=== PATIENT | male | born 2000 ===

== ENCOUNTER 2018-10-08 10:16 | Emergency (ER) | payer BC ==
[2018-10-08] MEDS ORDERED: NS 0.9% 1000 ML* 1,000 ML IV ONE (10:28)
[2018-10-08 10:40] LABS: ABS Basophils 0.1 10^3/ul (0-0.2); ABS Eosinophils 0 10^3/ul (0-0.6); ABS Lymphocytes 1.3 10^3/ul (1.0-4.8); ABS Monocytes 1.1 10^3/ul (0-0.8); ABS Neutrophils 7.1 10^3/ul (1.5-7.7); ABS Nucleated RBC 0 10^3/ul; Eosinophil % 0 % (0-6); Hematocrit 47 % (42-52); Hemoglobin 15.5 g/dl (14.0-18.0); Lymphocyte % 13.7 % (25-47); Mean Corpuscular HGB Conc 33 g/dl (31-36); Mean Corpuscular Hemoglobin 30 pg (27-31); Mean Corpuscular Volume 90 fL (80-94); Mean Platelet Volume 7.3 fL (7.4-10.4); Nucleated Red Blood Cells % 0.1; Platelet Count 215 10^3/ul (150-450); Red Blood Count 5.21 10^6/ul (4.00-5.40); Red Cell Distribution Width 13 % (10.5-15); White Blood Count 9.6 10^3/ul (3.5-10.8)
--- NOTE | 2018-10-08 10:40 | ED ---
HPI Febrile Illness - HPI Summary HPI Summary: 18-year-old male presents with fever for the past 3 days. He states that he was treated for herpes virus last week and was placed on acyclovir. He states that his symptoms resolved. He states that on Thursday he started developing a fever. He states he has been nauseous and did have some diarrhea. He also admits to sinus congestion. He denies any cough. He admits to sore throat. - History of Current Complaint Chief Complaint: EDGeneral Time Seen by Provider: 10/08/18 10:27 Pain Intensity: 6 - Allergy/Home Medications Allergies/Adverse Reactions: Allergies Allergy/AdvReac Type Severity Reaction Status Date / Time amoxicillin [From Augmentin] Allergy Unknown Verified 10/08/18 10:23 Reaction Details clavulanic acid Allergy Unknown Verified 10/08/18 10:23 [From Augmentin] Reaction Details PMH/Surg Hx/FS Hx/Imm Hx Endocrine/Hematology History: Denies: Hx Anticoagulant Therapy Respiratory History: Denies: Hx Asthma Infectious Disease History: No Infectious Disease History: Denies: Traveled Outside the [place] in Last 30 Days - Family History Known Family History: Negative: Diabetes - Social History Substance Use Type: Reports: None Review of Systems Positive: Fever Negative: Chest Pain Negative: Shortness Of Breath Positive: Diarrhea, Nausea. Negative: Abdominal Pain, Vomiting Positive: Myalgia - generalized body aches All Other Systems Reviewed And Are Negative: Yes Physical Exam Triage Information Reviewed: Yes Vital Signs On Initial Exam: Initial Vitals Temp Pulse Resp BP Pulse Ox 98.5 F 61 19 128/77 100 10/08/18 10:21 10/08/18 10:21 10/08/18 10:21 10/08/18 10:21 10/08/18 10:21 Vital Signs Reviewed: Yes Appearance: Positive: Well-Appearing Skin: Positive: Warm, Dry Head/Face: Positive: Normal Head/Face Inspection Eyes: Positive: Normal, EOMI, BESS, Conjunctiva Clear ENT: Positive: Normal ENT inspection, Pharynx normal, TMs normal Neck: Positive: Supple, Nontender, No Lymphadenopathy. Negative: Nuchal Rigidity Respiratory/Lung Sounds: Positive: Clear to Auscultation, Breath Sounds Present Cardiovascular: Positive: Normal, RRR Abdomen Description: Positive: Nontender, Soft Bowel Sounds: Positive: Present Musculoskeletal: Positive: Normal Neurological: Positive: Normal Psychiatric: Positive: Normal Diagnostics - Vital Signs Vital Signs Temp Pulse Resp BP Pulse Ox 10/08/18 10:21 98.5 F 61 19 128/77 100 - Laboratory Result Diagrams: 10/08/18 10:29 10/08/18 10:29 Lab Statement: Any lab studies that have been ordered have been reviewed, and results considered in the medical decision making process. - Radiology chest Radiology Interpretation Completed By: Radiologist Summary of Radiographic Findings: IMPRESSION: #. RIGHT lower lobe pneumonia. Course/Dx - Course Course Of Treatment: 18-year-old male presents with fever for the past 3 days. He states that he was treated for herpes virus last week and was placed on acyclovir. He states that his symptoms resolved. He states that on Thursday he started developing a fever. He states he has been nauseous and did have some diarrhea. He also admits to sinus congestion. He denies any cough. He admits to sore throat. On exam lungs clear to auscultation. Abdomen soft nontender. Negative nuchal rigidity. exaplined no signs of meningitis on exam. Labs wbc normal. CRP is elevated. Chest x-ray shows pneumonia. Gave dosed levaquin. We'll treat with oral Levaquin at home. Patient understands and agrees the plan. - Febrile Illness Differential Diagnoses: Meningitis, Pneumonia, Viremia - Diagnoses Provider Diagnoses: Pneumonia Discharge - Sign-Out/Discharge Documenting (check all that apply): Patient Departure - Discharge Plan Condition: Good Disposition: HOME Prescriptions: Levofloxacin TAB* [Levaquin TAB*] 750 mg PO DAILY #6 tab Patient Education Materials: Pneumonia (ED) Referrals: No Primary Care Phys,NOPCP [Primary Care Provider] - Additional Instructions: take levaquin once a day for 6 days starting tomorrow Give fluids as tolerated take Tylenol or ibuprofen every 6 hours for fever Return to ED if develop any new or worsening symptoms - Billing Disposition and Condition Condition: GOOD Disposition: Home
[2018-10-08 10:57] LABS: EGFR Non-African American 66.2 (>60)
[2018-10-08] MEDS ORDERED: Levofloxacin 750 MG IVPREMIX(* 750 MG/150 ML BAG IVPB ONE (11:25)
[2018-10-08 13:23] VITALS: BP 125/70
== END 2018-10-08 13:27 | disposition home or self-care (01) ==
LOC: ED 10:16
DX: J18.9 Pneumonia, unspecified organism (principal); Z88.1 Allergy status to other antibiotic agents; Z88.0 Allergy status to penicillin
CPT/HCPCS: 36415; 71046; 80053; 83605; 83735; 84145; 85025; 86140; 86308; 86664; 86665; 96360; 99282